=== PATIENT | female | born 1990 | race Caucasian/White ===

== ENCOUNTER 2017-11-24 21:03 | Emergency (ER) | payer SELFPAY ==
[~2017-11-24] VITALS: Ht 165.1 cm; Wt 95.5 kg
[~2017-11-24 21:03] MED LIST: CEFTIN 250250 MG/TAB PO; FEROSUL325 MG PO; FLAGYL500 MG PO; FOLIC ACID0.4 MG; FOLIC ACID1 MG PO; KEPPRA 500MG500 MG PO; KEPPRA1000 MG PO; KEPPRA500 MG PO; KEPPRA750 MG PO; LAMICTAL 100MG100 MG PO; LAMICTAL 25MG T25 MG PO; LAMICTAL PO; LAMICTAL XR200 MG PO; LAMICTAL XR300 MG PO; LAMICTAL200 MG PO; LEXAPRO 10MG10 MG PO; LORTAB 5/500 501 TAB PO; MULTIPLE VITAMI1 CAP PO; NO HOME MEDICATIONS; NORCO 325 MG-7.1 TAB PO; PRENATAL VITAMI1 TAB PO; PYRIDIUM200 M1 PO; VIMPAT50 MG PO; ZONEGRAN 100MG100 MG PO
[2017-11-24 21:05] VITALS: TEMP 98.5
[2017-11-24] MEDS ORDERED: NORCO 325 MG-51 TAB PO (21:59)
[2017-11-24 22:28] VITALS: BP 107/70; PULSE 81
== END 2017-11-24 22:49 | disposition home or self-care (01) ==
LOC: COL.ER 21:03
DX: S93.402A Sprain of unspecified ligament of left ankle, initial encounter (principal); G40.909 Epilepsy, unspecified, not intractable, without status epilepticus; W10.9XXA Fall (on) (from) unspecified stairs and steps, initial encounter; Y92.89 Other specified places as the place of occurrence of the external cause

== ENCOUNTER → 2018-09-06 | Outpatient (CLI) | payer BC ==
[~2018-09-06] MED LIST changes: +NORCO 325 MG-51 TAB PO
== END ==
LOC: COL.RAD 07:10
DX: E01.0 Iodine-deficiency related diffuse (endemic) goiter (principal)

== ENCOUNTER → 2018-09-19 | Outpatient (CLI) | payer BC ==
[~2018-09-19] VITALS: Ht 165.1 cm; Wt 87.1 kg
[~2018-09-19] MED LIST changes: +PRENATAL MVI PO; +SPRINTEC 35 MCG1 TAB PO
[2018-09-19 08:37] VITALS: BP 116/71; PULSE 93
[2018-09-19 09:20] VITALS: BP 116/62; PULSE 74
== END ==
LOC: COL.RAD 08:15
DX: E04.1 Nontoxic single thyroid nodule (principal); G40.909 Epilepsy, unspecified, not intractable, without status epilepticus; E66.8 Other obesity; E78.1 Pure hyperglyceridemia

== ENCOUNTER → 2020-12-17 | Outpatient (CLI) | payer BC | LOC: ZCOL.LAB 09-14 08:34 | DX: Z20.822 Contact with and (suspected) exposure to COVID-19 (principal) ==

== ENCOUNTER → 2021-01-24 | Outpatient (CLI) | payer BC | LOC: ZCOL.LAB 13:38 | DX: Z20.822 Contact with and (suspected) exposure to COVID-19 (principal) ==

== ENCOUNTER → 2021-03-08 | Outpatient (CLI) | payer BC | LOC: COL.RAD 10:00 | DX: F80.1 Expressive language disorder (principal); R13.10 Dysphagia, unspecified ==

== ENCOUNTER 2021-03-16 09:45 | Outpatient (RCR) | payer BC | END 2021-03-17 | disposition home or self-care (01) | LOC: WSST | DX: I63.9 Cerebral infarction, unspecified (principal); M25.511 Pain in right shoulder; G83.23 Monoplegia of upper limb affecting right nondominant side ==

== ENCOUNTER 2021-04-30 11:17 | Emergency (ER) | payer BC ==
[~2021-04-30] VITALS: Ht 165.1 cm; Wt 79.1 kg
[2021-04-30 11:33] VITALS: BP 111/69; TEMP 98.6
[2021-04-30 14:23] VITALS: PULSE 74
== END 2021-04-30 14:23 | disposition home or self-care (01) ==
LOC: COL.ER 11:17
DX: M25.571 Pain in right ankle and joints of right foot (principal); G40.909 Epilepsy, unspecified, not intractable, without status epilepticus; Z79.899 Other long term (current) drug therapy

== ENCOUNTER 2021-06-03 09:45 | Outpatient (RCR) | payer BC | END 2021-06-06 | disposition home or self-care (01) | LOC: WSST | DX: I69.320 Aphasia following cerebral infarction (principal); I69.391 Dysphagia following cerebral infarction; R13.10 Dysphagia, unspecified; I69.351 Hemiplegia and hemiparesis following cerebral infarction affecting right dominant side; M25.511 Pain in right shoulder; Z93.1 Gastrostomy status; Z86.16 Personal history of COVID-19 ==

== ENCOUNTER → 2021-06-28 | Outpatient (CLI) | payer BC | LOC: MHCPAIN 13:16 | DX: I69.359 Hemiplegia and hemiparesis following cerebral infarction affecting unspecified side (principal); R25.2 Cramp and spasm; M79.671 Pain in right foot | CPT/HCPCS: G0463 ==

== ENCOUNTER 2021-07-06 09:45 | Outpatient (RCR) | payer BC | END 2021-07-07 | disposition home or self-care (01) | LOC: WSST | DX: I69.320 Aphasia following cerebral infarction (principal); I69.391 Dysphagia following cerebral infarction; R13.10 Dysphagia, unspecified ==

== ENCOUNTER 2021-08-05 09:45 | Outpatient (RCR) | payer BC | END 2021-08-06 | disposition home or self-care (01) | LOC: WSST | DX: I69.320 Aphasia following cerebral infarction (principal); I69.391 Dysphagia following cerebral infarction; R13.10 Dysphagia, unspecified; I69.351 Hemiplegia and hemiparesis following cerebral infarction affecting right dominant side; Z97.8 Presence of other specified devices ==

== ENCOUNTER → 2021-08-23 | Outpatient (CLI) | payer BC | LOC: MHCPAIN 13:43 | DX: I69.351 Hemiplegia and hemiparesis following cerebral infarction affecting right dominant side (principal); R25.2 Cramp and spasm | CPT/HCPCS: G0463 ==

== ENCOUNTER 2021-09-02 10:30 | Outpatient (RCR) | payer BC | END 2021-09-06 | disposition home or self-care (01) | LOC: MKS.ESL.PT | DX: I69.351 Hemiplegia and hemiparesis following cerebral infarction affecting right dominant side (principal) ==

== ENCOUNTER 2021-09-02 20:57 | Emergency (ER) | payer BC ==
[~2021-09-02] VITALS: Ht 165.1 cm; Wt 75.0 kg
[2021-09-02 23:30] VITALS: BP 128/81; PULSE 88; TEMP 98.1
== END 2021-09-02 23:35 | disposition home or self-care (01) ==
LOC: COL.ER 20:57
DX: I69.991 Dysphagia following unspecified cerebrovascular disease (principal); R13.10 Dysphagia, unspecified; R11.10 Vomiting, unspecified

== ENCOUNTER 2021-10-05 11:15 | Outpatient (RCR) | payer BC | END 2021-10-06 | disposition home or self-care (01) | LOC: MKS.ESL.PT | DX: I69.351 Hemiplegia and hemiparesis following cerebral infarction affecting right dominant side (principal); I69.320 Aphasia following cerebral infarction; I69.391 Dysphagia following cerebral infarction; R13.10 Dysphagia, unspecified ==

== ENCOUNTER 2021-10-21 11:15 | Outpatient (RCR) | payer BC | END 2021-11-06 | disposition home or self-care (01) | LOC: MKS.ESL.OT | DX: I69.361 Other paralytic syndrome following cerebral infarction affecting right dominant side (principal) ==

== ENCOUNTER → 2021-12-07 | Outpatient (RCR) | payer BC | END | disposition still patient (30) | LOC: MKS.ESL.PT → MKS.ESL.OT 11-07 09:45 → WSST 11-11 09:45 → MKS.ESL.PT 11-14 10:30 → WSST 11-25 09:45 → MKS.ESL.PT 11-30 11:15 → WSST 12-02 09:45 → MKS.ESL.PT 11:15 | DX: I69.351 Hemiplegia and hemiparesis following cerebral infarction affecting right dominant side (principal) | CPT/HCPCS: G0283-GP ==

== ENCOUNTER → 2021-12-20 | Outpatient (CLI) | payer BC | LOC: MHCPAIN 13:28 | DX: I69.351 Hemiplegia and hemiparesis following cerebral infarction affecting right dominant side (principal); R25.2 Cramp and spasm; Z93.1 Gastrostomy status | CPT/HCPCS: G0463 ==

== ENCOUNTER 2022-06-05 09:45 | Outpatient (RCR) | payer OTHER | END 2022-06-06 | disposition home or self-care (01) | LOC: WSST | DX: I69.320 Aphasia following cerebral infarction (principal); I69.391 Dysphagia following cerebral infarction; R13.10 Dysphagia, unspecified | CPT/HCPCS: G0283-GP ==

== ENCOUNTER → 2022-06-27 | Outpatient (CLI) | payer OTHER | LOC: MHCPAIN 14:31 | DX: M25.511 Pain in right shoulder (principal); R25.2 Cramp and spasm; I69.351 Hemiplegia and hemiparesis following cerebral infarction affecting right dominant side | CPT/HCPCS: G0463 ==

== ENCOUNTER → 2022-07-07 | Outpatient (RCR) | payer OTHER | END | disposition home or self-care (01) | LOC: MKS.ESL.OT → WSST 06-09 09:43 → MKS.ESL.PT 06-14 11:15 → WSST 06-16 09:45 → MKS.ESL.PT 06-21 11:15 → WSST 06-23 09:45 → MKS.ESL.PT 06-26 11:15 → WSST 06-30 09:45 → MKS.ESL.PT 07-05 11:15 → MKS.ESL.OT 10:30 | DX: I69.320 Aphasia following cerebral infarction (principal); I69.391 Dysphagia following cerebral infarction; R13.10 Dysphagia, unspecified; I69.351 Hemiplegia and hemiparesis following cerebral infarction affecting right dominant side; I69.398 Other sequelae of cerebral infarction; G40.909 Epilepsy, unspecified, not intractable, without status epilepticus; R51.9 Headache, unspecified | CPT/HCPCS: G0283-GP ==

== ENCOUNTER 2022-08-04 10:30 | Outpatient (RCR) | payer OTHER | END 2022-08-06 | disposition home or self-care (01) | LOC: MKS.ESL.PT | DX: I69.351 Hemiplegia and hemiparesis following cerebral infarction affecting right dominant side (principal); M25.511 Pain in right shoulder | CPT/HCPCS: G0283-GP ==

== ENCOUNTER 2022-12-04 11:15 | Outpatient (RCR) | payer OTHER | END 2022-12-07 | disposition home or self-care (01) | LOC: MKS.ESL.PT | DX: I69.320 Aphasia following cerebral infarction (principal); I69.391 Dysphagia following cerebral infarction; R13.12 Dysphagia, oropharyngeal phase; Z93.1 Gastrostomy status | CPT/HCPCS: G0283-GP ==

== ENCOUNTER 2023-01-05 11:15 | Outpatient (RCR) | payer OTHER | END 2023-01-06 | disposition home or self-care (01) | LOC: MKS.ESL.PT | DX: I69.351 Hemiplegia and hemiparesis following cerebral infarction affecting right dominant side (principal) | CPT/HCPCS: G0283-GP ==

== ENCOUNTER 2023-01-30 08:43 | Outpatient (CLI) | payer BC ==
[~2023-01-30] VITALS: Ht 165.1 cm; Wt 65.5 kg
[2023-01-30 09:47] VITALS: BP 95/65; PULSE 65; TEMP 98.1
[2023-01-30] MEDS ORDERED: LAMICTAL200 MG PO (09:53)
[2023-01-30] MEDS ORDERED: ROBINUL FORTE2 MG PO (09:54)
[2023-01-30] MEDS ORDERED: LIORESAL20 MG PO (09:55)
[2023-01-30] MEDS ORDERED: SEROQUEL50 MG PO (09:56)
[2023-01-30] MEDS ORDERED: ASPIRIN 81M81 MG/TA2 PO (09:57)
[2023-01-30] MEDS ORDERED: LIPITOR 40MG TA40 MG PO (10:00)
[2023-01-30] MEDS ORDERED: SLYND4 MG PO (10:02)
[2023-01-30 10:20] VITALS: BP 95/65; PULSE 77; TEMP 97
[2023-01-30 10:35] VITALS: BP 100/63; PULSE 75
--- NOTE | 2023-01-30 13:41 | NUR ---
[id number]: PT TO REMAIN IN ENDO TREATMENT ROOM FOR RECOVERY FROM PEG REPLACEMENT A&O, PLACED ON MONITOR, VSS ON RA RECEIVED REPORT AND ASSUMED CARE OF PT FROM JOYCE ABRAHAM SPOUSE/CG AT BEDSIDE PT NONVERBAL AND NPO, ABLE TO COMMUNICATE NEEDS, DENIES COMPLAINT. NEW ENFIT ACCESSORIES AND RESSINGS PROVIDED TO PT ALONG WITH ENFIT DIRECTIONS FROM MANUFACTUE (USE AND CLEANING) PT HAS REMAINED A&O, NAD, VSS ON RA, WITHOUT SIGNIFICANT COMPLAINT, WITH SLOW STEADY GAIT THRU OUT STAY NO IV. D/C INSTRUCTIONS, ANY FOLLOW UP REVIEWED AND HANDED TO PT. ALL QUESTIONS AND CONCERNS ADDRESSED TO PT SATISFACTION. TAKEN TO EXIT VIA W/C WITH ALL BELONGINGS AND PAPERWORK IN HAND, ASSISTED INTO PASSENGER SEAT OF POV. FAMILY TO DRIVE HOME.
== END 2023-01-30 11:25 | disposition home or self-care (01) ==
LOC: SDCO 08:43
DX: K94.29 Other complications of gastrostomy (principal); Z86.73 Personal history of transient ischemic attack (TIA), and cerebral infarction without residual deficits
CPT/HCPCS: 33081

== ENCOUNTER 2023-02-05 11:15 | Outpatient (RCR) | payer BC ==
[~2023-02-05 11:15] MED LIST changes: +ASPIRIN 81M81 MG/TA2 PO; +LIORESAL20 MG PO; +LIPITOR 40MG TA40 MG PO; +ROBINUL FORTE2 MG PO; +SEROQUEL50 MG PO; +SLYND4 MG PO
== END 2023-02-06 | disposition home or self-care (01) ==
LOC: WSST
DX: I69.351 Hemiplegia and hemiparesis following cerebral infarction affecting right dominant side (principal)

== ENCOUNTER 2023-03-05 11:15 | Outpatient (RCR) | payer BC | END 2023-03-08 | disposition home or self-care (01) | LOC: WSST | DX: I69.320 Aphasia following cerebral infarction (principal); I69.391 Dysphagia following cerebral infarction; R13.12 Dysphagia, oropharyngeal phase; I69.351 Hemiplegia and hemiparesis following cerebral infarction affecting right dominant side; I69.398 Other sequelae of cerebral infarction; R56.9 Unspecified convulsions; R51.9 Headache, unspecified; Z93.1 Gastrostomy status ==

== ENCOUNTER 2023-03-12 11:15 | Outpatient (RCR) | payer BC, MEDICARE | END 2023-04-08 | disposition home or self-care (01) | LOC: WSST | DX: I69.320 Aphasia following cerebral infarction (principal); I69.391 Dysphagia following cerebral infarction; R13.12 Dysphagia, oropharyngeal phase ==

== ENCOUNTER → 2023-06-19 | Outpatient (CLI) | payer BC, MEDICARE | LOC: COL.RAD 08:52 | DX: N13.30 Unspecified hydronephrosis (principal); R74.01 Elevation of levels of liver transaminase levels ==

== ENCOUNTER → 2023-09-27 | Outpatient (CLI) | payer BC, MEDICARE | LOC: MHCPAIN 14:15 | DX: I69.351 Hemiplegia and hemiparesis following cerebral infarction affecting right dominant side (principal); R25.2 Cramp and spasm; M25.511 Pain in right shoulder; R13.10 Dysphagia, unspecified; G24.9 Dystonia, unspecified | CPT/HCPCS: G0463 ==

== ENCOUNTER → 2023-10-02 | Outpatient (CLI) | payer BC, MEDICARE ==
[~2023-10-02] MED LIST changes: +Ethyl Chloride Topical 200 (3 to 7 second) Sprays/103 ML BOTTLE TP ONE; +NS 10 ML IV ONE
== END ==
LOC: MHCPAIN 14:34
DX: R25.2 Cramp and spasm (principal); I69.353 Hemiplegia and hemiparesis following cerebral infarction affecting right non-dominant side
CPT/HCPCS: J0585

== ENCOUNTER → 2023-11-13 | Outpatient (CLI) | payer BC, MEDICARE ==
[~2023-11-13] MED LIST changes: -Ethyl Chloride Topical 200 (3 to 7 second) Sprays/103 ML BOTTLE TP ONE; -NS 10 ML IV ONE
== END ==
LOC: MHCPAIN 15:17
DX: I69.351 Hemiplegia and hemiparesis following cerebral infarction affecting right dominant side (principal); G24.9 Dystonia, unspecified; R13.10 Dysphagia, unspecified
CPT/HCPCS: G0463

== ENCOUNTER → 2024-01-07 | Outpatient (RCR) | payer BC, MEDICARE | END | disposition still patient (30) | LOC: WSST → MKS.ESL.OT 12-17 10:30 → WSST 12-21 09:45 → MKS.ESL.OT 12-24 10:30 → WSST 12-26 09:45 → MKS.ESL.PT 12-28 10:30 → WSST 12-31 09:45 → MKS.ESL.OT 01-02 10:30 → WSST 09:45 | DX: I69.391 Dysphagia following cerebral infarction (principal); R13.12 Dysphagia, oropharyngeal phase; I69.351 Hemiplegia and hemiparesis following cerebral infarction affecting right dominant side; I69.320 Aphasia following cerebral infarction ==

== ENCOUNTER → 2024-01-10 | Outpatient (CLI) | payer BC, MEDICARE | LOC: MHCPAIN 14:59 | DX: M25.571 Pain in right ankle and joints of right foot (principal); R25.2 Cramp and spasm; I69.351 Hemiplegia and hemiparesis following cerebral infarction affecting right dominant side; I69.398 Other sequelae of cerebral infarction | CPT/HCPCS: J0585 ==

== ENCOUNTER → 2024-03-10 | Outpatient (CLI) | payer BC, MEDICARE | LOC: MHCPAIN 12:56 | DX: I69.359 Hemiplegia and hemiparesis following cerebral infarction affecting unspecified side (principal); G24.9 Dystonia, unspecified; K11.7 Disturbances of salivary secretion; R13.10 Dysphagia, unspecified | CPT/HCPCS: G0463 ==